=== PATIENT | female | born 1940 | race Caucasian/White ===

== ENCOUNTER 2020-12-26 08:04 | Outpatient (CLI) | payer MEDICARE | END 2020-12-26 08:05 | disposition home or self-care (01) | LOC: CT 08:04 | PROVIDERS: ATTEND Otolaryngology Plastic Surgery within the Head & Neck | DX: E83.52 Hypercalcemia (principal); J98.11 Atelectasis; J90 Pleural effusion, not elsewhere classified; J98.6 Disorders of diaphragm; D35.1 Benign neoplasm of parathyroid gland | CPT/HCPCS: 70492; 78072; 82565; A9500; Q9967 ==

== ENCOUNTER 2021-04-09 16:56 | Outpatient (CLI) | payer MEDICARE ==
[2021-04-09 17:46] LABS: Hemoglobin 13.9 g/dL (12.0-15.5); Mean Corpuscular HGB CONC 30.2 g/dL (32.0-36.0); Mean Corpuscular Hemoglobin 24.4 pg (27.0-33.0); Mean Corpuscular Volume 80.7 fl (81.6-98.3); Mean Platelet Volume 10.8 fl (7.4-10.4); Platelet Count 232 10x3/uL (150-450); RBC Distribution Width 17.6 % (11.5-14.5); White Blood Cell (WBC) Count 7.2 10x3/uL (3.5-10.5)
[2021-04-09 18:17] LABS: INR-International Normal Ratio 1.2
[2021-04-09 18:19] LABS: Anion Gap 15 mmol/L (10-20); BUN (Urea Nitrogen) 16 mg/dL (9.8-20.1); Calc. Creatinine Clearance 0 mL/min (70-130); Calcium 8.7 mg/dL (7.8-10.44); Carbon Dioxide 23 mmol/L (23-31); Chloride 103 mmol/L (98-107); Glucose 127 mg/dL (83-110); Potassium 4.4 mmol/L (3.5-5.1); Sodium 137 mmol/L (136-145)
[2021-04-10 01:01] LABS: SARS-CoV-2 PCR by NAA Not Detected (NotDetected)
== END 2021-04-09 16:57 | disposition home or self-care (01) ==
LOC: LABBT 16:56
PROVIDERS: ATTEND Internal Medicine Cardiovascular Disease
DX: Z01.812 Encounter for preprocedural laboratory examination (principal); Z20.822 Contact with and (suspected) exposure to COVID-19
CPT/HCPCS: 80048; 85027; 85610; U0003; U0005

== ENCOUNTER 2021-04-10 16:51 | Inpatient (IN) | payer MEDICARE ==
[~2021-04-10 16:51] MED LIST: Iopamidol-370 76% 500 ML 1 ML ONE
[2021-04-10] MEDS ORDERED: Magnesium 2 GM/50 ML BAG (IN WATER) ONE (17:22)
[2021-04-10 17:36] LABS: #Eosinphils 0.1 thou/uL (0.0-0.7); #Lymphocytes 1.3 thou/uL (1.20-3.40); #Monocytes 0.8 thou/uL (0.11-0.59); #Neutrophils 6.5 thou/uL (1.40-6.50); %Eosinophils 0.6 % (0.0-10.0); %Lymphocytes 15.4 % (21.0-51.0); %Monocytes 8.9 % (0.0-10.0); %Neutrophils 75.1 % (42.0-75.0); Hemoglobin 14.8 g/dL (12.0-16.0); Mean Corpuscular HGB CONC 31.3 g/dL (32.0-36.0); Mean Corpuscular Hemoglobin 25.8 pg (27.0-31.0); Mean Corpuscular Volume 82.5 fL (78.0-98.0); Mean Platelet Volume 10.2 fL (7.4-10.4); Platelet Count 208 thou/uL (130-400); RBC Distribution Width 16.7 % (11.5-14.5); Red Blood Cell (RBC) Count 5.75 mill/uL (4.20-5.40); White Blood Cell (WBC) Count 8.6 thou/uL (4.8-10.8)
[2021-04-10] MEDS ORDERED: Metoprolol Tartrate 5 MG/5 ML VIAL ONE (18:00)
[2021-04-10 18:04] LABS: ALT (SGPT) 21 U/L (8-55); AST (SGOT) 23 U/L (5-34); Albumin 3.8 g/dL (3.4-4.8); Alkaline Phosphatase 124 U/L (40-110); Anion Gap 15 mmol/L (10-20); BUN (Urea Nitrogen) 16 mg/dL (9.8-20.1); Bilirubin, Total 1.5 mg/dL (0.2-1.2); CK (CPK) 37 U/L (29-168); Calc. Creatinine Clearance 0 mL/min (70-130); Calcium 8.9 mg/dL (7.8-10.44); Carbon Dioxide 24 mmol/L (23-31); Chloride 100 mmol/L (98-107); Globulin 2.7 g/dL (2.4-3.5); Glucose 121 mg/dL (83-110); Lipase 31 U/L (8-78); Magnesium 1.6 mg/dL (1.6-2.6); Potassium 4.6 mmol/L (3.5-5.1); Protein, Total 6.5 g/dL (5.8-8.1); Sodium 134 mmol/L (136-145)
[2021-04-10 18:14] LABS: INR-International Normal Ratio 1.5; PTT 32.1 sec (22.9-36.1); Prothrombin Time 18.2 sec (12.0-14.7)
[2021-04-10 18:15] LABS: D-Dimer Test 2.47 *mcg/mL (0.27-0.43)
[2021-04-10] MEDS ORDERED: Furosemide 20 MG/2 ML VIAL ONE (19:16)
[2021-04-10 20:20] LABS: Bilirubin Negative (Negative); Blood, Urine Negative (Negative); Clarity Clear (Clear); Glucose, Urine (Dipstick) Normal (Negative); Ketone, Urine Negative (Negative); Leukocyte Negative Leu/uL (Negative); Nitrite Negative (Negative); Protein, Urine (Dipstick) Negative (Neg-Trace); Specific Gravity, Urine 1.016 (1.002-1.036); Urobilinogen Normal mg/dL (Less than 2)
[2021-04-10 21:12] LABS: Troponin I 0.012 ng/mL (< 0.028)
[2021-04-10] MEDS ORDERED: Enoxaparin Sodium 80 MG/0.8 ML SYRINGE SC SCH (22:00)
[2021-04-10] MEDS: Sotalol HCl 80 MG TAB PO SCH (22:06)
[2021-04-11] MEDS: Ondansetron PF 4 MG/2 ML Vial IVP PRN ×2 (04:11→09:27)
[2021-04-11 04:34] LABS: #Basophils 0.1 thou/uL (0.0-0.2); #Eosinphils 0.1 thou/uL (0.0-0.7); #Lymphocytes 1.5 thou/uL (1.20-3.40); #Neutrophils 6.3 thou/uL (1.40-6.50); %Eosinophils 0.7 % (0.0-10.0); %Lymphocytes 16.2 % (21.0-51.0); %Monocytes 11.1 % (0.0-10.0); %Neutrophils 70.9 % (42.0-75.0); Hemoglobin 13.8 g/dL (12.0-16.0); Mean Corpuscular HGB CONC 31.4 g/dL (32.0-36.0); Mean Corpuscular Hemoglobin 25.6 pg (27.0-31.0); Mean Corpuscular Volume 81.5 fL (78.0-98.0); Mean Platelet Volume 10.2 fL (7.4-10.4); Platelet Count 190 thou/uL (130-400); RBC Distribution Width 16.6 % (11.5-14.5); Red Blood Cell (RBC) Count 5.38 mill/uL (4.20-5.40); White Blood Cell (WBC) Count 8.9 thou/uL (4.8-10.8)
[2021-04-11 04:58] LABS: Anion Gap 15 mmol/L (10-20); BUN (Urea Nitrogen) 14 mg/dL (9.8-20.1); Calc. Creatinine Clearance 60 mL/min (70-130); Calcium 8.7 mg/dL (7.8-10.44); Carbon Dioxide 23 mmol/L (23-31); Chloride 100 mmol/L (98-107); Glucose 89 mg/dL (83-110); Magnesium 1.8 mg/dL (1.6-2.6); Sodium 134 mmol/L (136-145)
[2021-04-11] MEDS: Furosemide 20 MG/2 ML VIAL SLOW IVP SCH ×2 (06:10→14:59)
[2021-04-11 07:42] VITALS: BMI 23.6
[2021-04-11] MEDS: Magnesium Oxide 400 MG TAB PO SCH ×2 (09:32→21:40)
[2021-04-11] MEDS: Sotalol HCl 80 MG TAB PO SCH ×2 (09:32→21:40)
[2021-04-11] MEDS: Enoxaparin Sodium 80 MG/0.8 ML SYRINGE SC SCH ×2 (09:34→22:04)
[2021-04-11 12:13] LABS: SARS-CoV-2 PCR by NAA Not Detected (NotDetected)
[2021-04-11] MEDS: Promethazine HCl 6.25 MG in Sodium Chloride 0.9% 50 ML IVPB PRN ×2 (15:25→22:04)
[2021-04-11] MEDS: Melatonin 3 MG TAB PO PRN (21:40)
[2021-04-11] MEDS: Acetaminophen 325 MG TAB PO PRN (22:00)
[2021-04-12 04:43] LABS: #Eosinphils 0.1 thou/uL (0.0-0.7); #Lymphocytes 1.2 thou/uL (1.20-3.40); #Monocytes 0.8 thou/uL (0.11-0.59); #Neutrophils 4.7 thou/uL (1.40-6.50); %Basophils 0.3 % (0.0-1.0); %Lymphocytes 18.3 % (21.0-51.0); %Monocytes 11.6 % (0.0-10.0); %Neutrophils 68.8 % (42.0-75.0); Hemoglobin 14.2 g/dL (12.0-16.0); Mean Corpuscular HGB CONC 31.4 g/dL (32.0-36.0); Mean Corpuscular Hemoglobin 25.5 pg (27.0-31.0); Mean Corpuscular Volume 81.1 fL (78.0-98.0); Platelet Count 204 thou/uL (130-400); RBC Distribution Width 16.5 % (11.5-14.5); Red Blood Cell (RBC) Count 5.56 mill/uL (4.20-5.40); White Blood Cell (WBC) Count 6.8 thou/uL (4.8-10.8)
[2021-04-12 05:15] LABS: Anion Gap 13 mmol/L (10-20); BUN (Urea Nitrogen) 14 mg/dL (9.8-20.1); Calc. Creatinine Clearance 53 mL/min (70-130); Calcium 8.2 mg/dL (7.8-10.44); Carbon Dioxide 28 mmol/L (23-31); Chloride 96 mmol/L (98-107); Glucose 94 mg/dL (83-110); Magnesium 1.6 mg/dL (1.6-2.6); Potassium 3.5 mmol/L (3.5-5.1); Sodium 133 mmol/L (136-145)
[2021-04-12] MEDS ORDERED: Heparin 10,000 UNITS/ 10 ML VIAL ONE (06:28)
[2021-04-12] MEDS ORDERED: Heparin 25,000 units/D5W 0 ML ONE (06:28)
[2021-04-12] MEDS ORDERED: Lidocaine 1% (PF) 30 ML VIAL ONE (06:29)
[2021-04-12] MEDS ORDERED: Fentanyl 100 MCG/2 ML VIAL ONE ×3 (06:39→10:15)
[2021-04-12] MEDS: Furosemide 20 MG/2 ML VIAL SLOW IVP SCH (06:53)
[2021-04-12] MEDS ORDERED: PROPOFOL 20 ML ONE ×2 (07:21→09:46)
[2021-04-12] MEDS ORDERED: Midazolam HCl 2 mg/2 ml Vial ONE (07:21)
[2021-04-12] MEDS ORDERED: Dexamethasone 20 MG/5 ML VIAL ONE (07:29)
[2021-04-12] MEDS ORDERED: Ondansetron PF 4 MG/2 ML Vial ONE ×2 (07:29→09:41)
[2021-04-12] MEDS ORDERED: Phenylephrine 10 MG/ML VIAL ONE (08:20)
[2021-04-12] MEDS ORDERED: Isoproterenol 0.2 MG/1 ML AMP ONE (08:56)
[2021-04-12] MEDS ORDERED: Ondansetron HCl/PF 4 MG/2 ML Vial IVP PRN (10:10)
[2021-04-12] MEDS ORDERED: Promethazine HCl 25 MG/ML VIAL IVPB PRN (10:10)
[2021-04-12] MEDS: Enoxaparin Sodium 80 MG/0.8 ML SYRINGE SC SCH (11:14)
[2021-04-12] MEDS: Magnesium Oxide 400 MG TAB PO SCH ×2 (11:14→21:09)
[2021-04-12] MEDS: Sotalol HCl 80 MG TAB PO SCH (11:14)
[2021-04-12] MEDS: Acetaminophen 325 MG TAB PO PRN ×2 (12:06→21:08)
[2021-04-12] MEDS: Apixaban 2.5 MG TAB PO SCH (21:08)
[2021-04-12] MEDS: Melatonin 3 MG TAB PO PRN (21:09)
[2021-04-13 05:36] LABS: #Eosinphils 0.1 thou/uL (0.0-0.7); #Lymphocytes 1.6 thou/uL (1.20-3.40); #Monocytes 1.2 thou/uL (0.11-0.59); #Neutrophils 6.3 thou/uL (1.40-6.50); %Basophils 0.3 % (0.0-1.0); %Monocytes 12.9 % (0.0-10.0); %Neutrophils 68.8 % (42.0-75.0); Hemoglobin 13.2 g/dL (12.0-16.0); Mean Corpuscular HGB CONC 31.3 g/dL (32.0-36.0); Mean Corpuscular Hemoglobin 25.4 pg (27.0-31.0); Mean Corpuscular Volume 81.1 fL (78.0-98.0); Mean Platelet Volume 9.8 fL (7.4-10.4); Platelet Count 180 thou/uL (130-400); RBC Distribution Width 16.2 % (11.5-14.5); Red Blood Cell (RBC) Count 5.21 mill/uL (4.20-5.40); White Blood Cell (WBC) Count 9.2 thou/uL (4.8-10.8)
[2021-04-13 05:53] LABS: Anion Gap 15 mmol/L (10-20); BUN (Urea Nitrogen) 13 mg/dL (9.8-20.1); Calc. Creatinine Clearance 71 mL/min (70-130); Calcium 7.9 mg/dL (7.8-10.44); Carbon Dioxide 24 mmol/L (23-31); Chloride 99 mmol/L (98-107); Glucose 91 mg/dL (83-110); Magnesium 1.6 mg/dL (1.6-2.6); Potassium 3.4 mmol/L (3.5-5.1); Sodium 135 mmol/L (136-145)
[2021-04-13] MEDS: Ondansetron PF 4 MG/2 ML Vial IVP PRN (08:43)
[2021-04-13] MEDS ORDERED: Amiodarone 200 MG TAB PO SCH (09:00)
[2021-04-13] MEDS: Magnesium Oxide 400 MG TAB PO SCH ×2 (09:36→15:32)
[2021-04-13] MEDS: Apixaban 2.5 MG TAB PO SCH (09:36)
[2021-04-13 16:26] VITALS: BP 114/75; TEMP 98
== END 2021-04-13 16:15 | disposition home or self-care (01) | DRG 273 ==
LOC: ERS 16:51 → 2NO 19:13
PROVIDERS: ADMIT Family Medicine; ATTEND Internal Medicine
PROC: 02583ZZ Destruction of Conduction Mechanism, Percutaneous Approach (ICD-10-PCS; principal; 2021-04-12)
PROC: 02K83ZZ Map Conduction Mechanism, Percutaneous Approach (ICD-10-PCS; 2021-04-12)
DX: I48.3 Typical atrial flutter (principal); I50.43 Acute on chronic combined systolic (congestive) and diastolic (congestive) heart failure; K21.9 Gastro-esophageal reflux disease without esophagitis; Z96.651 Presence of right artificial knee joint; Z20.822 Contact with and (suspected) exposure to COVID-19; I11.0 Hypertensive heart disease with heart failure; I48.0 Paroxysmal atrial fibrillation; E78.5 Hyperlipidemia, unspecified; I25.10 Atherosclerotic heart disease of native coronary artery without angina pectoris; Z82.49 Family history of ischemic heart disease and other diseases of the circulatory system; Z87.891 Personal history of nicotine dependence; Z90.710 Acquired absence of both cervix and uterus; Z88.8 Allergy status to other drugs, medicaments and biological substances; Z79.01 Long term (current) use of anticoagulants; Z79.899 Other long term (current) drug therapy; Z86.718 Personal history of other venous thrombosis and embolism; Z90.49 Acquired absence of other specified parts of digestive tract
CPT/HCPCS: 36415; 71045; 71275; 80048; 80053; 81003; 82550; 83690; 83735; 83880; 84443; 84484; 85025; 85027; 85379; 85610; 85652; 85730; 93005; 93312; 93613; 93621; 93653; 96365; 96375; C1731; C1894; C2630; J1100; J1644; J1650; J1940; J2001; J2250; J2370; J2405; J2550; J2704; J3010; J3475; Q9967; U0003; U0005